=== PATIENT | male | born 2005 | race Caucasian/White ===

== ENCOUNTER 2024-10-31 23:02 | Observation (INO) ==
[2024-10-31] MEDS: SODIUM CHLORIDE 0.9% 1,000 ML IV ONE (23:42)
[2024-10-31] MEDS: ONDANSETRON INJ 2 MG/ML 2 ML VIAL IV STA (23:42)
--- NOTE | 2024-10-31 23:47 | Emergency Department Note ---
Impression & Plan Gastroenteritis due to norovirus, Dehydration, moderate, Leukocytosis ED Provider Note CHIEF COMPLAINT: Nausea, vomiting, diarrhea since 4 PM HISTORY OF PRESENT ILLNESS: This 18-year-old male patient presents to the emergency department via private vehicle accompanied by father for evaluation of nausea, vomiting, diarrhea. Symptoms started approximately 6 to 7 hours prior to arrival. Patient states he was feeling fine up until then. Father was sick with similar symptoms over the past few days. Patient denies any fever. He has had some chills which started this evening. He has been unable to keep down any food or fluids since early this morning. The patient denies eating anything unusual. He denies any urinary symptoms to include burning with urination, urinary frequency, urinary hesitancy, hematuria. Patient states "I am shitting water". Patient denies vomiting blood. He denies any hematochezia or melena. He has not tried any medications for his symptoms. There has been generalized abdominal tenderness, worse right before vomiting. No specific localized tenderness to palpation. History provided by: Patient REVIEW OF SYSTEMS: A 10 system review of systems was performed with positives and pertinent negatives listed in the history of present illness. All other systems were reviewed and are negative. ALLERGIES: Amoxicillin PHYSICAL EXAM: VITALS: Vitals are noted on the nurse's note and reviewed by myself. GENERAL: This is a 18-year-old male, in no acute distress, nondiaphoretic, well- developed well-nourished. SKIN: The skin was pale, without rashes, erythema, edema, or bruising. There is no tenting of the skin. Capillary refill less than 2 seconds. HEAD: Normocephalic atraumatic. EYES: Conjunctivae without injection, sclerae without icterus. MOUTH: Mucous membranes dry. Tonsils are not enlarged. Pharynx without erythema or exudate. Uvula midline. Airway patent. Tongue does not deviate. NECK: Supple without nuchal rigidity. No lymphadenopathy. Cervical spine is nontender. No JVD. HEART: Regular rate and rhythm without murmurs gallops or rubs. LUNGS: Clear to auscultation bilaterally without wheezes, rales or rhonchi. No retractions or accessory muscle use. ABDOMEN: Positive bowel sounds x 4. Soft, nontender, without masses or organomegaly. Shah sign negative. No guarding or rebound tenderness. MUSCULOSKELETAL: No muscle atrophy, erythema, or edema noted. Full range of motion without joint tenderness in all extremities. No tenderness to palpation. Normal gait. Strength 5/5 throughout. NEURO: Patient was alert and oriented to person place and time. Normal sensation to light and sharp touch. Deep tendon reflexes 2+ throughout. No focal neurological deficits. An order was placed for continuous monitoring engineer. The monitor showed a sinus tachycardia at a ventricular rate of 111 bpm, per my interpretation. EMERGENCY DEPARTMENT COURSE: The patient was seen and evaluated as above. The patient presents to the emergency department for nausea, vomiting, diarrhea. Symptoms started about 4 PM. On arrival, the patient has not been able to tolerate any p.o. food or fluids. He is tachycardic. There is no focal abdominal tenderness to palpation. IV access was obtained, labs were drawn. Patient was hydrated with IV fluids and medicated with Zofran. Labs reviewed. Per my interpretation, there was a leukocytosis of 31,000. No anemia or thrombocytopenia. Renal, hepatic function and electrolytes without significant abnormality, however there was an elevated anion gap of 15. Lipase was 10. Stool testing was positive for norovirus. Case was discussed with the attending physician. I discussed findings with the patient at bedside. He was reassessed. He notes he has been feeling improved. He appears less pale. Patient states he tried a sip of water and was able to tolerate this, but he is hesitant to continue to drink more. Given the patient's significant leukocytosis and dehydration associated with norovirus, I did recommend inpatient care. The patient was agreeable. The patient will be admitted to the [facility] service. Please see hospitalist dictation regarding ongoing management care of this patient. I attest that I have personally reviewed the patient medication list. I attest that I have reviewed the patient's blood pressure and it was found to be normal GCS: 15 In the evaluation and treatment of this patient the following differential diagnoses were entertained: Gastroenteritis, food borne illness, infections, appendicitis, diverticulitis, inflammatory bowel disease, obstruction, GI bleed, biliary pathology, volvulus, as well as other pathologies. The chart was completed utilizing [employer] voice recognition software. Grammatical errors, random word insertions, pronoun errors, and incomplete sentences are an occasional consequence of this system due to software limitations, ambient noise, and hardware issues. Any formal questions or concerns about the content, text, or information contained within the body of this dictation should be directly addressed to the provider for clarification. Past Med/Surg History Problem List (Updated 11/01/24 @ 04:03 by Keiry Power PA-C) Leukocytosis (Acute) Dehydration, moderate (Acute) Gastroenteritis due to norovirus (Acute) Acne Neutrogena wash. Given Clindamycin gel Medical History ADHD, predominantly inattentive type Irritability and anger Mostly family dynamics with mother and control. Seeing therapist. No suicide thoughts Plantar warts Resolved. Hip pain Resolved. right. physical therapy. s/p hurt hip when swinging a bat Eczema controlled with steroid cream but rarely uses. Back pain Resolved Surgical History (Updated 08/26/23 @ 14:38 by Jolynn Traore LPN) Hx of wisdom tooth extraction ~2022 Family History Mother Asthma Crohn's disease Depression Grandfather (Maternal) Hypertension Hyperlipemia Prostate cancer Father No significant active problems Denies family history of Ovarian cancer Dementia Heart disease Myocardial infarction Breast cancer Lung cancer Colorectal cancer Stroke Social History Smoking Status: Current every day smoker Tobacco Type: E-cigarettes / Vaping Second Hand Exposure: No; Do You Dip or Chew Tobacco: No; Hx Alcohol Use: No Hx Substance Use: No Preferred Language: Spanish Visual Impairment: No Limitations Hearing Ability: Normal marital status: Single Current Living Situation: Alone and Parent current occupational status: student How many Children do You have: 0 Feels Safe at Home: Yes Childhood Exposure to Second-Hand Smoke: No Diet: regular caffeine: Yes Dental Care, Regularly: Yes Physical Activity Frequency: 3-4 Times per Week Seatbelt Use: always Sunscreen Use: No Assistive Devices: None Allergies Allergies Allergy/AdvReac Type Severity Reaction Status Date / Time amoxicillin Allergy Mild ITCHY RASH Unverified 08/26/23 14:35 Home Meds Previous Rx's Medication Instructions Recorded triamcinolone acetonide 0.1 % 1 applic topical BID eczema 2 07/09/21 topical ointment weeks #30 grams Results & Data (ED) Vital Signs Vital Signs - 24 hr 10/31/24 23:05 10/31/24 23:49 10/31/24 23:49 Temperature 36.5 C Temperature Source Temporal Artery Scan Pulse Rate 111 H 77 Pulse Rate [Right Finger] 78 Pulse Rhythm Regular Regular Pulse Rhythm [Right Finger] Regular Pulse Strength Normal Respiratory Rate 20 18 18 Respiratory Effort / Characteristics Non-Labored Spontaneous Non-Labored Spontaneous Respiratory Depth Normal Normal Respiratory Pattern Regular Regular Blood Pressure 131/88 Blood Pressure [Left Arm] 138/88 Blood Pressure Mean 102 Blood Pressure Mean [Left Arm] 104 Blood Pressure Position Sitting Blood Pressure Position [Left Arm] Lying Pulse Oximetry 98 100 100 Oxygen Delivery Method Room Air Room Air Room Air Sepsis Recent Fever Within 48 Hours No Sepsis New/Unexplained Change in Mental Status No Sepsis Action Taken by Nursing No Action Required 11/01/24 01:15 11/01/24 02:00 11/01/24 03:14 Temperature Temperature Source Pulse Rate Pulse Rate [Right Finger] 70 80 83 Pulse Rhythm Pulse Rhythm [Right Finger] Pulse Strength Respiratory Rate 17 17 18 Respiratory Effort / Characteristics Non-Labored Spontaneous Non-Labored Respiratory Depth Normal Normal Respiratory Pattern Regular Blood Pressure Blood Pressure [Left Arm] 109/64 104/64 110/68 Blood Pressure Mean Blood Pressure Mean [Left Arm] 79 77 82 Blood Pressure Position Blood Pressure Position [Left Arm] Lying Pulse Oximetry 100 95 98 Oxygen Delivery Method Room Air Room Air Sepsis Recent Fever Within 48 Hours Sepsis New/Unexplained Change in Mental Status Sepsis Action Taken by Nursing Laboratory Data 10/31/24 23:19 10/31/24 23:19 Lab Results 10/31/24 10/31/24 Range/Units 23:19 23:41 WBC 31.41 H* (4.8-10.8) K/ul RBC 6.58 H (4.70-6.10) M/uL Hgb 18.4 H (14.0-18.0) g/dl Hct 53.1 H (42.0-52.0) % MCV 80.7 (80.0-100.0) fL MCH 28.0 (25.0-34.0) pg MCHC 34.7 (32.0-36.0) g/dL RDW Std Deviation 37.4 (36.4-46.3) fL RDW Coeff of Mandy 13.4 (11.5-14.5) % Plt Count 316 (130-400) K/uL MPV 10.0 (9.4-12.4) fL Immature Gran % (Auto) 0.8 % Neut % (Auto) 91.9 % Lymph % (Auto) 2.0 % Burnett % (Auto) 4.9 % Eos % (Auto) 0.0 % Baso % (Auto) 0.4 % Neut # (Auto) 28.89 H (1.40-6.50) K/uL Lymph # (Auto) 0.62 L (1.20-3.40) K/uL Burnett # (Auto) 1.53 H (0.11-0.59) K/uL Eos # (Auto) 0.01 (0.00-0.50) K/uL Baso # (Auto) 0.12 (0.00-0.20) K/uL Immature Gran # (Auto) 0.24 H (0.01-0.20) K/uL Sodium 138 (136-145) mmol/L Potassium 3.5 (3.5-5.1) mmol/L Chloride 103 (98-107) mmol/L Carbon Dioxide 20 L (21-32) mmol/L Anion Gap 15 H (3-11) BUN 14 (6-23) mg/dl Creatinine 1.07 (0.6-1.4) mg/dl Est Cr Clr Drug Dosing 136.4 ml/min eGFR 101.88 BUN/Creatinine Ratio 13.1 (10-20) Glucose 133 H (70-99(Fasting)) mg/dl Calcium 10.8 H (8.6-10.3) mg/dl Total Bilirubin 1.6 H (0.2-1.0) mg/dl AST 27 (13-39) U/L ALT 35 (7-52) U/L Alkaline Phosphatase 55 (34-104) U/L Total Protein 9.3 H (6.0-8.3) gm/dl Albumin 6.3 H (3.4-5.0) gm/dl Globulin 3.0 (2.5-4.0) gm/dl Albumin/Globulin Ratio 2.1 H (0.9-2) Lipase 10 L (11-82) U/L Stl C. cayetanensis PCR Not Detected (NotDetected) Stool Rotavirus A PCR Not Detected (NotDetected) Stl Adenov F 40/41 PCR Not Detected (NotDetected) Stool Astrovirus (PCR) Not Detected (NotDetected) Stool Campylobacter PCR Not Detected (NotDetected) Stool Cryptosporidium PCR Not Detected (NotDetected) Stl E.coli Shiga Tox PCR Not Detected (NotDetected) Stl Enterotoxigenic E PCR Not Detected (NotDetected) Stool EPEC (PCR) Not Detected (NotDetected) Stool EAEC (PCR) Not Detected (NotDetected) Stl E. histolytica PCR Not Detected (NotDetected) Stool Giardia Lamblia PCR Not Detected (NotDetected) Stool Salmonella PCR Not Detected (NotDetected) Stool Sapovirus (PCR) Not Detected (NotDetected) Stl P. shigelloides PCR Not Detected (NotDetected) Stl Shigella/EIEC PCR Not Detected (NotDetected) St Y.enterocolitica PCR Not Detected (NotDetected) Stool Vibrio (PCR) Not Detected (NotDetected) Stl Vibrio cholerae PCR Not Detected (NotDetected) Stl Norovirus GI/GII PCR DETECTED A* (NotDetected) Administered Medications Sodium Chloride (Nss) 1,000 mls @ 999 mls/hr IV .Q1H1M PRASANTH Stop: 11/01/24 05:00 Last Admin: 11/01/24 03:04 Dose: 999 mls/hr Documented By: INESSA Discontinued Medications Sodium Chloride (Nss) 1,000 mls @ 999 mls/hr IV .Q1H1M ONE Stop: 11/01/24 00:19 Last Infusion: 11/01/24 01:15 Dose: Infused Documented By: Admin: 10/31/24 23:42 Dose: 999 mls/hr Documented By: WEST Ondansetron HCl (Ondansetron Inj 2 Mg/Ml 2 Ml Vial) 4 mg IV NOW STA Stop: 10/31/24 23:20 Last Admin: 10/31/24 23:42 Dose: 4 mg Documented By: PAG Discharge Plan Visit Data Chief Complaint: Flu Like Symptoms Stated Complaint: DIARREHEA VOMITING, CHILLS ED Provider: Roxanna Pollard ED Midlevel Provider: Keiry Power Discharge Problem: Gastroenteritis due to norovirus, Dehydration, moderate, Leukocytosis Patient Disposition: Admitted As Inpatient Forms Stand Alone Forms: My [facility] Prescriptions Prescriptions: No Action triamcinolone acetonide 0.1 % ointment 1 applic topical BID 14 Days Qty: 30 2RF Referrals Referrals: Rodrigo Winkler DO [Primary Care Provider] -
[2024-11-01 00:14] LABS: BUN Creatinine Ratio 13.1 (10-20); Calcium 10.8 mg/dl (8.6-10.3); Creatinine Clr Calc Pharmacy 136.4 ml/min; Potassium 3.5 mmol/L (3.5-5.1)
[2024-11-01 00:19] LABS: Hematocrit (blood only) 53.1 % (42.0-52.0); Hemoglobin 18.4 g/dl (14.0-18.0); Mean Corpuscular Hgb Conc 34.7 g/dL (32.0-36.0); Mean Corpuscular Volume 80.7 fL (80.0-100.0); Platelet Count 316 K/uL (130-400); RDW Coefficient of Variation 13.4 % (11.5-14.5); RDW Standard Deviation 37.4 fL (36.4-46.3); Red Blood Count 6.58 M/uL (4.70-6.10); White Blood Count 31.41 K/ul (4.8-10.8)
[2024-11-01 00:24] LABS: Basophils # (auto) 0.12 K/uL (0.00-0.20); Basophils % (auto) 0.4 %; Eosinophils # (auto) 0.01 K/uL (0.00-0.50); Immature Granulocytes # (auto) 0.24 K/uL (0.01-0.20); Immature Granulocytes % (auto) 0.8 %; Lymphocytes # (auto) 0.62 K/uL (1.20-3.40); Monocytes # (auto) 1.53 K/uL (0.11-0.59); Monocytes % (auto) 4.9 %; Neutrophils # (auto) 28.89 K/uL (1.40-6.50); Neutrophils % (auto) 91.9 %
[2024-11-01 00:31] LABS: Albumin Globulin Ratio 2.1 (0.9-2); Albumin Level 6.3 gm/dl (3.4-5.0); Bilirubin,Total 1.6 mg/dl (0.2-1.0); Total Protein 9.3 gm/dl (6.0-8.3)
[2024-11-01 01:24] LABS: Adenovirus F 40/41 PCR Not Detected (NotDetected); Astrovirus PCR Not Detected (NotDetected); Campylobacter PCR Not Detected (NotDetected); Cryptosporidium PCR Not Detected (NotDetected); Cyclospora cayetanensis PCR Not Detected (NotDetected); Entamoeba histolytica PCR Not Detected (NotDetected); Enteroaggregative E.coli(EAEC) Not Detected (NotDetected); Enteropathogenic E.coli (EPEC) Not Detected (NotDetected); Enterotoxigenic E.coli (ETEC) Not Detected (NotDetected); Giardia lamblia PCR Not Detected (NotDetected); Plesiomonas shigelloides PCR Not Detected (NotDetected); Rotavirus A PCR Not Detected (NotDetected); Salmonella PCR Not Detected (NotDetected); Sapovirus PCR Not Detected (NotDetected); Shiga-like Toxin E.coli (STEC) Not Detected (NotDetected); Shigella/Enteroinvasive E.coli Not Detected (NotDetected); Vibrio cholerae PCR Not Detected (NotDetected); Vibrio species PCR Not Detected (NotDetected); Yersinia enterocolitica PCR Not Detected (NotDetected)
[2024-11-01 01:38] LABS: Norovirus GI/GII PCR DETECTED (NotDetected)
[2024-11-01] MEDS: SODIUM CHLORIDE 0.9% 1,000 ML IV SCH (03:04)
--- NOTE | 2024-11-01 03:20 | History & Physical Report ---
Date of Service November 01, 2024 Assessment & Plan (1) Gastroenteritis due to norovirus: (2) Dehydration, moderate: Plan Neurovirus gastroenteritis with moderate dehydration- Stool PCR positive for norovirus Likely exposures entire family, and her his father believes that he was the original case, but is unsure of where he got it from. Status post NSS 1 L fluid bolus from the ED Give 2 additional liter normal saline fluid bolus now. Patient reports that he thinks he can drink Powerade, and he will be supplied with whenever he can drink this time. Full liquid diet Zofran 4 mg IV every 6 hours as needed Give Klor-Con 40 mill equivalents p.o. now, at 3 AM, repeat at 5 AM Laboratories also show hemoconcentration, with WBC 31.41, hemoglobin 18.4, hematocrit 3.1 and glucose 133 Contact isolation Plan to discharge patient back to home after he is adequately rehydrated and able to take an oral History of Present Illness Chief Complaint: The patient presents to the emergency department with acute onset of severe nausea, vomiting, diarrhea over the past 7 hours, after exposure to family members with similar symptoms earlier today. Primary Care Provider: Rodrigo Winkler DO The patient is a 18-year-old male with no significant past medical history, who presents to Emergency Department with 7 hours of acute onset of severe nausea, vomiting, diarrhea clear liquid stool. His father is with him, reports that he thinks he may have brought the infection home with him, as the remainder of the household has all been sick with similar symptoms. This patient, appears to have the worst degree of symptomatology. The patient has not had any recent travels, questionable food intakes. As noted, his entire family has similar s ymptoms. Allergies Allergy/AdvReac Type Severity Reaction Status Date / Time amoxicillin Allergy Mild ITCHY RASH Unverified 08/26/23 14:35 Home Medications Medication Instructions Recorded Confirmed Type triamcinolone acetonide 0.1 % 1 applic topical BID eczema 2 07/09/21 08/26/23 Rx topical ointment weeks #30 grams Past Med/Surg History Problem List (Updated 11/01/24 @ 03:18 by Vince Azevedo MD) Dehydration, moderate Gastroenteritis due to norovirus Acne Neutrogena wash. Given Clindamycin gel Medical History (Updated 11/01/24 @ 03:18 by Vince Azevedo MD) ADHD, predominantly inattentive type Irritability and anger Mostly family dynamics with mother and control. Seeing therapist. No suicide thoughts Plantar warts Resolved. Hip pain Resolved. right. physical therapy. s/p hurt hip when swinging a bat Eczema controlled with steroid cream but rarely uses. Back pain Resolved Surgical History (Updated 08/26/23 @ 14:38 by Jolynn Traore LPN) Hx of wisdom tooth extraction ~2022 Family History Mother Asthma Crohn's disease Depression Grandfather (Maternal) Hypertension Hyperlipemia Prostate cancer Father No significant active problems Denies family history of Ovarian cancer Dementia Heart disease Myocardial infarction Breast cancer Lung cancer Colorectal cancer Stroke Social History (Updated 08/26/23 @ 14:40 by Jolynn Traore LPN) Smoking Status: Current every day smoker Tobacco Type: E-cigarettes / Vaping Second Hand Exposure: No; Do You Dip or Chew Tobacco: No; Hx Alcohol Use: No Hx Substance Use: No Preferred Language: Australian Visual Impairment: No Limitations Hearing Ability: Normal marital status: Single Current Living Situation: Alone and Parent current occupational status: student How many Children do You have: 0 Feels Safe at Home: Yes Childhood Exposure to Second-Hand Smoke: No Diet: regular caffeine: Yes Dental Care, Regularly: Yes Physical Activity Frequency: 3-4 Times per Week Seatbelt Use: always Sunscreen Use: No Assistive Devices: None Review of Systems Review of Systems: The patient denies chest pain, palpitations, shortness of breath, dyspnea on exertion, cough, lower extremity swelling, sore throat, fevers, chills, sweats, blood in urine or stool, dysuria, urinary frequency or urgency, lightheadedness, dizziness, headache, memory loss, loss of consciousness, rash, abnormal bruising or bleeding, focal weakness, numbness or tingling in arms or legs, generalized arthralgias or myalgias, back or neck pain, or night sweats. The review of systems is otherwise negative other than for that already noted above, and at least 10 systems have been reviewed. Physical Exam Physical Exam: The patient is awake, alert and oriented 3, well developed and well nourished, normocephalic and atraumatic, lying in bed and in no acute distress. HEENT--PERRL, EOMI, mucous membranes and oropharynx moderately dry. Neck--supple. No JVD. No bruits. Thyroid normal, trachea midline, no adenopathy. Heart--normal S1 and S2. No murmurs, rubs or gallops. Lungs--clear bilaterally, no respiratory distress, no accessory muscle use. Abdomen--normal bowel sounds and soft. Nontender. Nondistended, no hernias or masses, no organomegaly. Extremities--no cyanosis or clubbing. No edema. There are good distal pulses b/l. Dermatologic--skin is dry Neurologic--cranial nerves II through XII grossly intact. Rheumatologic--normal range of motion. Psychiatric--normal affect. Results & Data Results & Data Vital Signs (Past 12 Hours) Vital Signs Temp Pulse Pulse Resp BP BP Pulse Ox 11/01/24 02:00 80 17 104/64 95 11/01/24 01:15 70 17 109/64 100 10/31/24 23:49 77 18 100 10/31/24 23:49 78 18 138/88 100 10/31/24 23:05 36.5 C 111 H 20 131/88 98 O2 Del Method 11/01/24 02:00 Room Air 11/01/24 01:15 10/31/24 23:49 Room Air 10/31/24 23:49 Room Air 10/31/24 23:05 Room Air Laboratory Results Laboratory Results WBC 31.41 K/ul (4.8-10.8) H* 10/31/24 23:19 RBC 6.58 M/uL (4.70-6.10) H 10/31/24 23:19 Hgb 18.4 g/dl (14.0-18.0) H 10/31/24 23:19 Hct 53.1 % (42.0-52.0) H 10/31/24 23:19 MCV 80.7 fL (80.0-100.0) 10/31/24 23:19 MCH 28.0 pg (25.0-34.0) 10/31/24 23:19 MCHC 34.7 g/dL (32.0-36.0) 10/31/24 23:19 RDW Std Deviation 37.4 fL (36.4-46.3) 10/31/24 23:19 RDW Coeff of Mandy 13.4 % (11.5-14.5) 10/31/24 23:19 Plt Count 316 K/uL (130-400) 10/31/24 23:19 MPV 10.0 fL (9.4-12.4) 10/31/24 23:19 Immature Gran % (Auto) 0.8 % 10/31/24 23:19 Neut % (Auto) 91.9 % 10/31/24 23:19 Lymph % (Auto) 2.0 % 10/31/24 23:19 Ventura % (Auto) 4.9 % 10/31/24 23:19 Eos % (Auto) 0.0 % 10/31/24 23:19 Baso % (Auto) 0.4 % 10/31/24 23:19 Neut # (Auto) 28.89 K/uL (1.40-6.50) H 10/31/24 23:19 Lymph # (Auto) 0.62 K/uL (1.20-3.40) L 10/31/24 23:19 Ventura # (Auto) 1.53 K/uL (0.11-0.59) H 10/31/24 23:19 Eos # (Auto) 0.01 K/uL (0.00-0.50) 10/31/24 23:19 Baso # (Auto) 0.12 K/uL (0.00-0.20) 10/31/24 23:19 Immature Gran # (Auto) 0.24 K/uL (0.01-0.20) H 10/31/24 23:19 Sodium 138 mmol/L (136-145) 10/31/24 23:19 Potassium 3.5 mmol/L (3.5-5.1) 10/31/24 23:19 Chloride 103 mmol/L (98-107) 10/31/24 23:19 Carbon Dioxide 20 mmol/L (21-32) L 10/31/24 23:19 Anion Gap 15 (3-11) H 10/31/24 23:19 BUN 14 mg/dl (6-23) 10/31/24 23:19 Creatinine 1.07 mg/dl (0.6-1.4) 10/31/24 23:19 Est Cr Clr Drug Dosing 136.4 ml/min 10/31/24 23:19 eGFR 101.88 10/31/24 23:19 BUN/Creatinine Ratio 13.1 (10-20) 10/31/24 23:19 Glucose 133 mg/dl (70-99(Fasting)) H 10/31/24 23:19 Calcium 10.8 mg/dl (8.6-10.3) H 10/31/24 23:19 Total Bilirubin 1.6 mg/dl (0.2-1.0) H 10/31/24 23:19 AST 27 U/L (13-39) 10/31/24 23:19 ALT 35 U/L (7-52) 10/31/24 23:19 Alkaline Phosphatase 55 U/L (34-104) 10/31/24 23:19 Total Protein 9.3 gm/dl (6.0-8.3) H 10/31/24 23:19 Albumin 6.3 gm/dl (3.4-5.0) H 10/31/24 23:19 Globulin 3.0 gm/dl (2.5-4.0) 10/31/24 23:19 Albumin/Globulin Ratio 2.1 (0.9-2) H 10/31/24 23:19 Lipase 10 U/L (11-82) L 10/31/24 23:19 Stl C. cayetanensis PCR Not Detected (NotDetected) 10/31/24 23:41 Stool Rotavirus A PCR Not Detected (NotDetected) 10/31/24 23:41 Stl Adenov F 40/41 PCR Not Detected (NotDetected) 10/31/24 23:41 Stool Astrovirus (PCR) Not Detected (NotDetected) 10/31/24 23:41 Stool Campylobacter PCR Not Detected (NotDetected) 10/31/24 23:41 Stool Cryptosporidium PCR Not Detected (NotDetected) 10/31/24 23:41 Stl E.coli Shiga Tox PCR Not Detected (NotDetected) 10/31/24 23:41 Stl Enterotoxigenic E PCR Not Detected (NotDetected) 10/31/24 23:41 Stool EPEC (PCR) Not Detected (NotDetected) 10/31/24 23:41 Stool EAEC (PCR) Not Detected (NotDetected) 10/31/24 23:41 Stl E. histolytica PCR Not Detected (NotDetected) 10/31/24 23:41 Stool Giardia Lamblia PCR Not Detected (NotDetected) 10/31/24 23:41 Stool Salmonella PCR Not Detected (NotDetected) 10/31/24 23:41 Stool Sapovirus (PCR) Not Detected (NotDetected) 10/31/24 23:41 Stl P. shigelloides PCR Not Detected (NotDetected) 10/31/24 23:41 Stl Shigella/EIEC PCR Not Detected (NotDetected) 10/31/24 23:41 St Y.enterocolitica PCR Not Detected (NotDetected) 10/31/24 23:41 Stool Vibrio (PCR) Not Detected (NotDetected) 10/31/24 23:41 Stl Vibrio cholerae PCR Not Detected (NotDetected) 10/31/24 23:41 Stl Norovirus GI/GII PCR DETECTED (NotDetected) A* 10/31/24 23:41 Code Status & VTE Plan Code Status Full code VTE Prophylaxis Plan VTE Prophylaxis will be ordered: Yes PG Care Time/CCT Total # of Minutes Spent Total Time Spent with Patient: Total time spent is greater than 50% in coordination of care (as documented) at patient's floor/unit and/or counseling patient: Coding Level of Care Code 86509 INT INP/OBS CARE 2/55MIN Diagnoses Gastroenteritis due to norovirus A08.11 Dehydration, moderate E86.0
[2024-11-01] MEDS: POTASSIUM CHLORIDE CRTAB 20 MEQ TABCR PO STA (04:12)
[2024-11-01] MEDS: POTASSIUM CHLORIDE CRTAB 20 MEQ TABCR PO ONE (04:16)
[2024-11-01] MEDS: ONDANSETRON INJ 2 MG/ML 2 ML VIAL IV PRN (04:18)
[2024-11-01] MEDS ORDERED: ACETAMINOPHEN 325 MG TAB PO PRN (05:39)
[2024-11-01 06:26] LABS: Appearance Urine Clear (Clear); Bilirubin Urine Negative (Negative); Blood Urine Negative (Negative); Color Urine Yellow; Glucose Urine UA Negative (Negative); Ketones Urine 3+ (Negative); Leukocyte Esterase Urine Negative (Negative); Nitrite Urine Negative (Negative); Protein Urine Negative (Negative); Specific Gravity Urine 1.022 (1.000-1.030); Urobilinogen Urine Negative (Negative); pH Urine 5.5 (4.5-7.5)
[2024-11-01 06:35] VITALS: TEMP 99.3
[2024-11-01 07:07] VITALS: RESP 16
[2024-11-01 09:12] VITALS: BP 120/64; PULSE 104; O2SAT 95
--- NOTE | 2024-11-01 13:41 | Discharge Summary ---
Date of Service November 01, 2024 Admission HPI Per Admitting Provider The patient is a 18-year-old male with no significant past medical history, who presents to Emergency Department with 7 hours of acute onset of severe nausea, vomiting, diarrhea clear liquid stool. His father is with him, reports that he thinks he may have brought the infection home with him, as the remainder of the household has all been sick with similar symptoms. This patient, appears to have the worst degree of symptomatology. The patient has not had any recent travels, questionable food intakes. As noted, his entire family has similar symptoms. Principal Diagnosis Nausea, vomiting, diarrhea Discharge Exam GENERAL: This is a 18-year-old male, in no acute distress, nondiaphoretic, well-developed well-nourished. SKIN: The skin was pale, without rashes, erythema, edema, or bruising. There is no tenting of the skin. Capillary refill less than 2 seconds. HEAD: Normocephalic atraumatic. EYES: Conjunctivae without injection, sclerae without icterus. MOUTH: Mucous membranes dry. Tonsils are not enlarged. Pharynx without erythema or exudate. Uvula midline. Airway patent. Tongue does not deviate. NECK: Supple without nuchal rigidity. No lymphadenopathy. Cervical spine is nontender. No JVD. HEART: Regular rate and rhythm without murmurs gallops or rubs. LUNGS: Clear to auscultation bilaterally without wheezes, rales or rhonchi. No retractions or accessory muscle use. ABDOMEN: Positive bowel sounds x 4. Soft, nontender, without masses or organomegaly. Shah sign negative. No guarding or rebound tenderness. MUSCULOSKELETAL: No muscle atrophy, erythema, or edema noted. Full range of motion without joint tenderness in all extremities. No tenderness to palpation. Normal gait. Strength 5/5 throughout. NEURO: Patient was alert and oriented to person place and time. Normal sensation to light and sharp touch. Deep tendon reflexes 2+ throughout. No focal neurological deficits. Discharge Data Allergies Allergy/AdvReac Type Severity Reaction Status Date / Time amoxicillin Allergy Mild ITCHY RASH Unverified 08/26/23 14:35 Consultations 11/01/24 02:50 ED Decision to Admit Stat Ordered Studies Laboratory Results WBC 31.41 K/ul (4.8-10.8) H* 10/31/24 23:19 RBC 6.58 M/uL (4.70-6.10) H 10/31/24 23:19 Hgb 18.4 g/dl (14.0-18.0) H 10/31/24 23:19 Hct 53.1 % (42.0-52.0) H 10/31/24 23:19 MCV 80.7 fL (80.0-100.0) 10/31/24 23:19 MCH 28.0 pg (25.0-34.0) 10/31/24 23:19 MCHC 34.7 g/dL (32.0-36.0) 10/31/24 23:19 RDW Std Deviation 37.4 fL (36.4-46.3) 10/31/24 23:19 RDW Coeff of Mandy 13.4 % (11.5-14.5) 10/31/24 23:19 Plt Count 316 K/uL (130-400) 10/31/24 23:19 MPV 10.0 fL (9.4-12.4) 10/31/24 23:19 Immature Gran % (Auto) 0.8 % 10/31/24 23:19 Neut % (Auto) 91.9 % 10/31/24 23:19 Lymph % (Auto) 2.0 % 10/31/24 23:19 [place] % (Auto) 4.9 % 10/31/24 23:19 Eos % (Auto) 0.0 % 10/31/24 23:19 Baso % (Auto) 0.4 % 10/31/24 23:19 Neut # (Auto) 28.89 K/uL (1.40-6.50) H 10/31/24 23:19 Lymph # (Auto) 0.62 K/uL (1.20-3.40) L 10/31/24 23:19 [place] # (Auto) 1.53 K/uL (0.11-0.59) H 10/31/24 23:19 Eos # (Auto) 0.01 K/uL (0.00-0.50) 10/31/24 23:19 Baso # (Auto) 0.12 K/uL (0.00-0.20) 10/31/24 23:19 Immature Gran # (Auto) 0.24 K/uL (0.01-0.20) H 10/31/24 23:19 Sodium 138 mmol/L (136-145) 10/31/24 23:19 Potassium 3.5 mmol/L (3.5-5.1) 10/31/24 23:19 Chloride 103 mmol/L (98-107) 10/31/24 23:19 Carbon Dioxide 20 mmol/L (21-32) L 10/31/24 23:19 Anion Gap 15 (3-11) H 10/31/24 23:19 BUN 14 mg/dl (6-23) 10/31/24 23:19 Creatinine 1.07 mg/dl (0.6-1.4) 10/31/24 23:19 Est Cr Clr Drug Dosing 136.4 ml/min 10/31/24 23:19 eGFR 101.88 10/31/24 23:19 BUN/Creatinine Ratio 13.1 (10-20) 10/31/24 23:19 Glucose 133 mg/dl (70-99(Fasting)) H 10/31/24 23:19 Calcium 10.8 mg/dl (8.6-10.3) H 10/31/24 23:19 Total Bilirubin 1.6 mg/dl (0.2-1.0) H 10/31/24 23:19 AST 27 U/L (13-39) 10/31/24 23:19 ALT 35 U/L (7-52) 10/31/24 23:19 Alkaline Phosphatase 55 U/L (34-104) 10/31/24 23:19 Total Protein 9.3 gm/dl (6.0-8.3) H 10/31/24 23:19 Albumin 6.3 gm/dl (3.4-5.0) H 10/31/24 23:19 Globulin 3.0 gm/dl (2.5-4.0) 10/31/24 23:19 Albumin/Globulin Ratio 2.1 (0.9-2) H 10/31/24 23:19 Lipase 10 U/L (11-82) L 10/31/24 23:19 Urine Color Yellow 11/01/24 06:16 Urine Appearance Clear (Clear) 11/01/24 06:16 Urine pH 5.5 (4.5-7.5) 11/01/24 06:16 Ur Specific [place] 1.022 (1.000-1.030) 11/01/24 06:16 Urine Protein Negative (Negative) 11/01/24 06:16 Urine Glucose (UA) Negative (Negative) 11/01/24 06:16 Urine Ketones 3+ (Negative) H 11/01/24 06:16 Urine Blood Negative (Negative) 11/01/24 06:16 Urine Nitrite Negative (Negative) 11/01/24 06:16 Urine Bilirubin Negative (Negative) 11/01/24 06:16 Urine Urobilinogen Negative (Negative) 11/01/24 06:16 Ur Leukocyte Esterase Negative (Negative) 11/01/24 06:16 Stl C. cayetanensis PCR Not Detected (NotDetected) 10/31/24 23:41 Stool Rotavirus A PCR Not Detected (NotDetected) 10/31/24 23:41 Stl Adenov F 4041 PCR Not Detected (NotDetected) 10/31/24 23:41 Stool Astrovirus (PCR) Not Detected (NotDetected) 10/31/24 23:41 Stool Campylobacter PCR Not Detected (NotDetected) 10/31/24 23:41 Stool Cryptosporidium PCR Not Detected (NotDetected) 10/31/24 23:41 Stl E.coli Shiga Tox PCR Not Detected (NotDetected) 10/31/24 23:41 Stl Enterotoxigenic E PCR Not Detected (NotDetected) 10/31/24 23:41 Stool EPEC (PCR) Not Detected (NotDetected) 10/31/24 23:41 Stool EAEC (PCR) Not Detected (NotDetected) 10/31/24 23:41 Stl E. histolytica PCR Not Detected (NotDetected) 10/31/24 23:41 Stool Giardia Lamblia PCR Not Detected (NotDetected) 10/31/24 23:41 Stool Salmonella PCR Not Detected (NotDetected) 10/31/24 23:41 Stool Sapovirus (PCR) Not Detected (NotDetected) 10/31/24 23:41 Stl P. shigelloides PCR Not Detected (NotDetected) 10/31/24 23:41 Stl Shigella/EIEC PCR Not Detected (NotDetected) 10/31/24 23:41 St Y.enterocolitica PCR Not Detected (NotDetected) 10/31/24 23:41 Stool Vibrio (PCR) Not Detected (NotDetected) 10/31/24 23:41 Stl Vibrio cholerae PCR Not Detected (NotDetected) 10/31/24 23:41 Stl Norovirus GI/GII PCR DETECTED (NotDetected) A* 10/31/24 23:41 Hospital Course (1) Gastroenteritis due to norovirus: (2) Dehydration: Plan Gastroenteritis due to norovirus/Dehydration - Stool PCR positive for norovirus - 3 L total NSS fluids given in ED - 11/01: no nausea, vomiting with oral fluid intake - Patient progressed to full liquid diet without N/V/D - Patient appropriately rehydrated - Patient medically stable and safe for d/c Total Time Total Time Spent Total Time Spent (In Minutes): See attending attestation Discharge Plan Discharge Items Patient Disposition: Home - Self-Care Reason For Visit: NOROVIRUS GASTROENTERITIS, DEHYDRATION Discharge Diagnosis: norovirus Activity: Per Instructions section Non-emergency contact: Primary Care Provider Call non-emergency contact if: your temperature is above 101.5 Follow-up/Referrals: Rodrigo Winkler DO [Primary Care Provider] - Diet: Regular Addtl Attending Provider Instructions: You were admitted to the hospital for norovirus. This is a highly contagious virus, a gastrointestinal illness, that is spread from poop to the mouth. You likely got it from a contaminated surface or food. You were pretty dehydrated when you got here and we gave you lots of fluids. We also used a medicine called Zofran to help with the nausea/vomiting. Your symptoms improved and you were able to tolerate some food/drink. We recommend you continue to hydrate with gatorade, water, pedialyte, liquid IV etc - at about half a cup of water hourly to stay ahead of any dehydration. We did give you a home pack of zofran to use every 4 hours as needed for nausea. Would strongly recommend good hand hygiene - washing hands for 1 minutes prior to eating and after going to the bathroom. Would also recommend cleaning any possibly contaminated surfaces with a bleach product and replacement of your toothbrush to avoid re-introduction of the virus. Please follow up with your PCP in 7-10 days to make sure you are continuing to improve. Please return to care if symptoms worsen. Pending Studies at Discharge: No Stand-Alone Forms: [facility], Smoking Cessation Medications and DC Order Prescriptions: Continued triamcinolone acetonide 0.1 % ointment 1 applic topical BID 14 Days Qty: 30 2RF Discharge Orders: Discharge Order (Routine); Ordered 11/01/24 Ordered By: Mariana Odom Admission Data Admit Date/Time: 11/01/24 02:58 Attending Provider: Juan Miguel Rice Admit Provider: Vince Azevedo Primary Care Provider: Rodrigo Winkler Other Providers: Vince Azevedo Supervising Physician Co-Signing Physician Notes Attending attestation Pt seen and examined in concert with Dr. [place]. In agreement with the documented findings as noted in the resident documentation with any exceptions or additions as noted here. Ongoing improvement throughout the day with tolerance of liquid diet and PO intake at > 1 cup of rehydration salts per hour. Reports no abd pain, fevers. Would like to go home. On examination, S1/S2 nl RRR no MCG. CTAB. Abd NT/ND BS+ve Norovirus with gastroenteritis and dehydration - significant improvement hemodynamically and with symptoms. Counseling re: prevention and recognition of dehydration. Ondansetron for nausea. Recommend repeat labs at follow up to ensure resolution, though clinically doing well. Else see resident documentation as noted. Total attending physician time spent with this patient's care on the day of discharge: 35 minutes.
[2024-11-01] MEDS: ONDANSETRON HOME PACK 4MG OD TAB PO ONE (15:32)
== END 2024-11-01 15:55 | disposition home or self-care (01) ==
LOC: ED 23:02 → EDINP 23:02 → SUATTDRO 11-01 02:58 → 3E 11-01 05:39
DX: D72.829 Elevated white blood cell count, unspecified; F17.290 Nicotine dependence, other tobacco product, uncomplicated; A08.4 Viral intestinal infection, unspecified; E86.0 Dehydration; R11.2 Nausea with vomiting, unspecified; R19.7 Diarrhea, unspecified; Z88.0 Allergy status to penicillin